=== PATIENT | female | born 1975 | race American Indian/Alaskan Native ===

== ENCOUNTER 2017-11-16 17:35 | Emergency (ER) | payer SELFPAY ==
[2017-11-16] MEDS ORDERED: ZOFRAN ODT ONE (19:17)
[2017-11-16] MEDS ORDERED: ZOFRAN ODT PO ONE (19:20)
[2017-11-16 19:34] VITALS: BP 112/68
[2017-11-16 21:30] LABS: Bacteria,Urine 1+ /HPF (Negative); Bilirubin,Urine NEG (Negative); Blood,Urine LG (Negative); Color,Urine Yellow (Yellow); Mucus,Urine 2+ /HPF; Nitrite,Urine NEG (Negative); Urobilinogen,Urine < 2.0 mg/dL (<2.0)
== END 2017-11-16 20:34 | disposition left against medical advice (07) ==
LOC: ED 17:35
DX: R11.2 Nausea with vomiting, unspecified (principal); M54.9 Dorsalgia, unspecified; Z53.21 Procedure and treatment not carried out due to patient leaving prior to being seen by health care provider
CPT/HCPCS: 81001; Q0162